=== PATIENT | female | born 1960 | race Caucasian/White ===

== ENCOUNTER 2021-10-23 14:50 | Outpatient (CLI) | payer BC, SELFPAY ==
--- NOTE | 2021-10-23 15:30 | MR_ITS ---
[address] [address] Phone:?[phone] Fax:?[phone] Referring Physician Information: [place] Wade M.D. [id number] [facility] [address] Phone:?[phone] Fax:?[phone] Patient:Jocy Stapleton D.O.B:?1960 Sex:?Female Phone:?[phone] [facility] MRN:?[id number] Exam Date:?10/23/2021 ? EXAM: MRI of the RIGHT KNEE, without contrast CLINICAL: Right knee fall injury on October 09. Evaluate for medial meniscal root tear. COMPARISONS: None available. TECHNICAL: MR sequences of the right knee: sagittals: PD, PDFS coronals: PD, T2FS axials: PD, PDFS SEDATION: None. CONTRAST: None. FINDINGS: Ligaments: ACL: Intact ACL anteromedial and posterolateral bundles, without sprain or tear. PCL: Intact PCL, without acute or chronic injury. MCL: Intact MCL superficial and deep layers, without injury. LCL: Intact LCL, without injury. Posterolateral corner: Popliteus, biceps femoris, iliotibial band, and the popliteofibular ligament appear intact. Posteromedial corner: Semimembranosus, pes anserine tendons and posterior oblique ligament appear intact. Extensor mechanism: Patellar tendon: Intact, without tendinopathy. Quadriceps tendon: Intact, without tendinopathy. Retinacula: Medial and lateral retinacula are intact. Fat pads: Unremarkable infrapatellar Hoffa's, quadriceps and prefemoral fat pads. Patellofemoral joint: Patella: There is full-thickness chondral loss throughout the patellar cartilage with underlying subchondral reactive marrow edema. Trochlea: High-grade and full-thickness chondral loss is seen throughout the trochlea with mild underlying subchondral reactive edema. Medial compartment: Medial meniscus: Complex tearing involving the posterior horn and posterior root fibers on sagittal series 6 image 17-23. Mild ill-defined degenerative fraying/tearing involving the free edge of the body segment on coronal series 8 image 16-17. Approximately 3 mm of medial and 3 mm of inferior displacement of peripheral body segment meniscal tissue into the medial gutter. Medial cartilage: High-grade chondral loss involves the peripheral weightbearing medial femoral condyle with underlying subchondral reactive edema. Grade 2 chondral thinning involves the lateral aspect of the weightbearing medial femoral condyle. Lateral compartment: Lateral meniscus: Complex tearing involves the superior articular surface of the anterior horn on sagittal series 6 images 9-11 with ill-defined degenerative fraying/tearing involving the anterior root fibers on sagittal series 6 image 13-14. Mild degenerative fraying/tearing involving the free edge of the body segment on coronal series 8 image 17-18. Lateral cartilage: There is heterogeneity of the lateral compartment cartilage. No chondral defects. Knee joint: Effusion: Small right knee effusion. Intra-articular bodies:?No convincing bodies identified. Popliteal cyst: Small. Bones: Reactive marrow edema and small cystic change involves the peripheral weightbearing lateral femoral condyle. Reactive marrow edema also involves the peripheral medial femoral condyle and there is reactive marrow edema involving the posterior medial tibial plateau adjacent to the medial meniscal tear. No osseous fracture site is identified. IMPRESSION: 1. Tearing of the medial and lateral menisci as above. 2. 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 High- grade chondral loss involving the peripheral weightbearing medial femoral condyle with adjacent subchondral reactive marrow edema. 3. Small joint effusion and small popliteal cyst. [facility] Electronically signed on 10/24/2021 9:26:00 AM by Vernon Gomez D.O.
== END 2021-10-23 14:51 | disposition home or self-care (01) ==
PROVIDERS: PCP Family Medicine; Visit Provider Orthopaedic Surgery Sports Medicine
DX: M25.561 Pain in right knee (principal); M25.461 Effusion, right knee; S83.281A Other tear of lateral meniscus, current injury, right knee, initial encounter; S83.241A Other tear of medial meniscus, current injury, right knee, initial encounter; M17.11 Unilateral primary osteoarthritis, right knee
CPT/HCPCS: 73721

== ENCOUNTER 2021-11-03 13:45 | Outpatient (RCR) | payer BC, SELFPAY | END 2022-01-05 10:02 | disposition home or self-care (01) | PROVIDERS: PCP Family Medicine; Visit Provider Family Medicine | DX: M25.561 Pain in right knee (principal); Z51.89 Encounter for other specified aftercare | CPT/HCPCS: 97110; 97161 ==

== ENCOUNTER 2023-01-06 13:10 | Outpatient (CLI) | payer BC, SELFPAY | END 2023-01-06 13:11 | disposition home or self-care (01) | PROVIDERS: PCP Family Medicine; Visit Provider Family Medicine | DX: R17 Unspecified jaundice (principal); E55.9 Vitamin D deficiency, unspecified; I48.91 Unspecified atrial fibrillation | CPT/HCPCS: 80053; 80061; 82248; 82306; 82977; 84443 ==

== ENCOUNTER 2023-01-12 10:37 | Outpatient (CLI) | payer BC, SELFPAY ==
--- NOTE | 2023-01-12 12:22 | W.ANESCHARGE ---
Anesthesia Charges Start Date/Time Anesthesia Start Date: 01/12/23 Anesthesia Start Time: 11:38 Stop Date/Time Anesthesia Stop Date: 01/12/23 Anesthesia Stop Time: 12:10
== END 2023-01-12 10:38 | disposition home or self-care (01) ==
LOC: OP CLINIC 10:38
PROVIDERS: PCP Family Medicine; Visit Provider Surgery
DX: Z12.11 Encounter for screening for malignant neoplasm of colon (principal); K63.5 Polyp of colon; K62.1 Rectal polyp
CPT/HCPCS: 00811; 45385; 88305; J2704

== ENCOUNTER 2024-09-20 18:33 | Outpatient (CLI) | payer BC, SELFPAY | END 2024-09-20 18:34 | disposition home or self-care (01) | LOC: NFLDREF 09-25 15:24 | PROVIDERS: PCP Family Medicine; Referring Provider Family Medicine | DX: R35.0 Frequency of micturition (principal); N39.0 Urinary tract infection, site not specified | CPT/HCPCS: 87086 ==